=== PATIENT | female | born 1975 | race Caucasian/White ===

== ENCOUNTER 2018-08-15 23:21 | Emergency (ER) | payer OTHER ==
[~2018-08-15] VITALS: Ht 157.5 cm; Wt 87.1 kg
[2018-08-15] MEDS ORDERED: PROZAC40 MG PO (23:37)
[2018-08-15] MEDS ORDERED: IBUPROFEN IB200 MG PO (23:38)
[2018-08-16] MEDS ORDERED: CRUTCH1 EACH (01:34)
[2018-08-16] MEDS ORDERED: TRAMADOL HCL50 MG PO (01:34)
== END 2018-08-16 02:00 | disposition home or self-care (01) ==
LOC: ED 23:21
DX: S16.1XXA Strain of muscle, fascia and tendon at neck level, initial encounter (principal); S20.212A Contusion of left front wall of thorax, initial encounter; S80.12XA Contusion of left lower leg, initial encounter; S80.11XA Contusion of right lower leg, initial encounter; F17.200 Nicotine dependence, unspecified, uncomplicated; Z90.89 Acquired absence of other organs; Z90.710 Acquired absence of both cervix and uterus; Z88.0 Allergy status to penicillin; Z79.899 Other long term (current) drug therapy; V49.9XXA Car occupant (driver) (passenger) injured in unspecified traffic accident, initial encounter; W22.11XA Striking against or struck by driver side automobile airbag, initial encounter
CPT/HCPCS: 71045; 72040; 73590; 96374; 96375; 99283-25; J1885; J2270